=== PATIENT | male | born 1970 | race Hispanic/Latino ===

== ENCOUNTER 2020-09-25 21:39 | Inpatient (IN) | payer MEDICAID, SELFPAY ==
--- NOTE | ~2020-09-25 | XR_ITS ---
XR chest 1V portable 09/27/2020 06:13 Indication: Severe sepsis Procedure: AP portable chest Comparison: 09/26/2020 Findings: Heart size normal. Bilateral perihilar mixed interstitial and airspace disease. No pleural effusion or pneumothorax. NG tube in the stomach. Impression: 1: Mixed bilateral perihilar interstitial and airspace disease, pneumonia versus edema. Reviewed, dictated and finalized at location A. UTIVE RELATIONS SPECIALIST Impression: 1: Mixed bilateral perihilar interstitial and airspace disease, pneumonia versu s edema.
--- NOTE | ~2020-09-25 | XR_ITS ---
XR chest 1V portable 09/26/2020 05:52 Indication: Acute diabetic ketoacidosis. Sepsis. Procedure: AP portable chest Comparison: No prior studies for comparison. Findings: NG tube in the stomach. Heart size normal. There is asymmetric airspace disease of the righ t lung and left apex. No significant effusion or pneumothorax. No acute osseous abnormality. Probable hiatal hernia. No acute osseous abnormality. Impression: 1: Bilateral airspace disease, right greater than left, suspicious for pneumonia. Reviewed, dictated and finalized at location A. RAL GAS TREATING UNIT OPERATOR Impression: 1: Bilateral airspace disease, right greater than left, suspicious for pneumoni a.
--- NOTE | ~2020-09-25 | XR_ITS ---
XR abdomen NG/feed tube insert INDICATION: Evaluate NG tube position. TECHNIQUE: Limited KUB perform for evaluating NG tube . COMPARISON: No prior studies for comparison. FINDINGS: NG tube tip in the stomach. Visualized bowel gas pattern is unremarkable. IMPRESSION: 1: NG tube tip in the stomach. Reviewed, dictated and finalized at location A. CTION MOLDING MACHINE SETTER
--- NOTE | ~2020-09-25 | CT_ITS ---
EXAMINATION: CT abdomen pelvis w con EXAM DATE: 09/25/2020 22:53 INDICATION: Nausea vomiting and epigastric pain. TECHNIQUE: Spiral CT of the abdomen and pelvis was performed following intravenous injection of 100 m L Omnipaque 350. Axial, coronal and sagittal images were reviewed. The dose-length product (DLP) fo r this examination was 315.00 mGy-cm. The exposure was tailored according to patient size (auto mA e xposure control), and iterative reconstruction (ASIR) was used as additional dose reduction technique . There is no prior study for comparison. FINDINGS: Small to moderate amount of ascites. There is severe narrowing of the terminal ileum (see a xial image 83), a transition point with significantly distended ileum proximal to this, along with ed kevan within the mesentery. The mesenteric vasculature does enhance as expected. Appearance is most con sistent with small bowel obstruction. There is moderate amount of colonic stool. There is moderate si gmoid colonic diverticulosis. There is no adjacent inflammatory change to suggest diverticulitis. The liver, spleen, adrenal glands and pancreas are unremarkable. Gallbladder is unremarkable. No bi liary obstruction. Portal and splenic veins are patent. Kidneys enhance symmetrically. There is no hydronephrosis. Mild prostatomegaly. The bladder is unremarkable. There is no retroperitoneal or pelvic lymphadenopathy. There is mild scattered arteriosclerotic disease. The appendix is normal. There is moderate-sized paraesophageal hiatal hernia, gastric cardia extendi ng up through the diaphragm. No free intraperitoneal gas. The heart is normal in size. There are no pericardial or pleural effusions. Right basilar subsegmental atelectasis. There are no osteobla stic or osteolytic lesions identified. IMPRESSION: 1. Small bowel obstruction, transition point at the terminal ileum. Ascites, mesenteric edema. 2. Moderate-sized paraesophageal hiatal hernia. 3. Moderate sigmoid diverticulosis. Reviewed, dictated and finalized at location A. S SET UP PERSON IMPRESSION: 1. Small bowel obstruction, transition point at the terminal ileum. Ascites, m esenteric edema. 2. Moderate-sized paraesophageal hiatal hernia. 3. Moderate sigmoid diverticulosis.
[2020-09-25 21:42] VITALS: BP 158/101; PULSE 91; RESP 18; TEMP 35.6; O2SAT 100
--- NOTE | 2020-09-25 21:57 | ED.ABDPAIN ---
HPI - Abdominal Pain General Chief Complaint: Abdominal Pain Stated Complaint: abdominal pain Time Seen by Provider: 09/25/20 21:49 Source: patient Mode of arrival: ambulatory Limitations: no limitations History of Present Illness HPI narrative: Patient is a 48-year-old male complaining of mid abdominal pain, 7 out of 10, dull, nonradiating started yesterday. Patient denies any chest pain, shortness of breath, nausea, vomiting, diarrhea or urinary symptoms. Patient denies any fever or chills. Patient denies any GI bleeding. Related Data Home Medications Medication Instructions Recorded Confirmed Unable to Obtain Home Medications 09/25/20 09/25/20 Allergies Allergy/AdvReac Type Severity Reaction Status Date / Time No Known Allergies Allergy Verified 09/25/20 21:44 Review of Systems Review of Systems: All systems reviewed & are unremarkable except as noted in HPI and below Constitutional: Constitutional: Denies body ache(s), Denies chills, Denies excessive sweating, Denies fatigue, Denies fever(s), Denies headache(s), Denies lethargy, Denies malaise, Denies weakness and Denies weight loss Eyes: Eyes: Denies blurry vision, Denies change in vision and Denies loss of vision ENT: Denies dizziness, Denies ear discharge, Denies headache(s), Denies lip swelling, Denies epistaxis, Denies nasal congestion, Denies neck pain, Denies throat swelling and Denies tongue swelling Cardiovascular: Cardiovascular: Denies chest pain, Denies chest pain at rest, Denies chest pain with activity, Denies diaphoresis, Denies rapid heart rate, Denies edema, Denies irregular heart rhythm, Denies lightheadedness, Denies palpitations, Denies dyspnea and Denies dyspnea on exertion Respiratory: Respiratory: Denies chest congestion, Denies cough, Denies hemoptysis, Denies dyspnea and Denies dyspnea on exertion Gastrointestinal: Gastrointestinal: Denies melena, Denies hematochezia, Denies diarrhea, Denies nausea, Denies vomiting and Denies hematemesis Musculoskeletal: Musculoskeletal: Denies abnormal gait, Denies deformity, Denies joint swelling, Denies limited range of motion, Denies neck pain and Denies numbness Neurologic: Denies Abnormal speech present, Denies abnormal gait, Denies confusion, Denies dizziness, Denies headache(s), Denies focal weakness, Denies loss of vision, Denies numbness, Denies Other visual disturbances, Denies Sensory deficit (Neuro) and Denies weakness Psychiatric: Psychiatric: Denies confusion, Denies depression, Denies auditory hallucinations, Denies homicidal ideation and Denies suicidal ideation Endocrine: Endocrine: Denies cold intolerance, Denies excessive sweating, Denies fatigue, Denies heat intolerance and Denies palpitations Hematologic/Lymphatic: Hematologic/Lymphatic: Denies easy bleeding and Denies easy bruising Allergic/Immunologic: Allergic/Immunologic: Denies lip swelling, Denies throat swelling and Denies tongue swelling PMFSH Social History Social History Gender identity (if verbalized by the patient): Male Exam Const: General: cooperative, healthy appearing, comfortable, no acute distress, well developed, alert and awake; No confusion Orientation/consciousness: oriented to person, oriented to place, oriented to time, patient oriented x3 and No confusion Limitations: no limitations HENMT: Head: normal to inspection, normocephalic and atraumatic Ears: hearing grossly normal bilaterally, TM normal on the right and TM normal on the left General nose exam: Normal external nose present, Normal nares present and No nasal discharge present Face and sinus: normal facial exam Mouth: Yes Normal oral and palatal mucosa present, Yes lip normal, Yes tongue normal and Yes oropharynx normal Throat: posterior oropharynx normal, tonsils normal and uvula midline Eyes: General: appearance normal, both eyes and all related structures Pupils: Equal, round and reactive pupils present EOM: EOMs intact bilaterally Nec
[2020-09-25] MEDS: LACTATED RINGERS 1,000 ML 999 ML IV CONT (22:15)
[2020-09-25] MEDS: PROMETHAZINE HCL 25 MG/ML AMPUL (22:16)
[2020-09-25] MEDS: MORPHINE SULFATE (*CRX) 2 MG/ML INJ (22:16)
[2020-09-25 22:23] LABS: Basophils Percent Auto 0.1 % (0.2-1.2); Eosinophils Absolute Auto 0.1 K/mm3 (0-0.3); Eosinophils Percent Auto 0.3 % (0-4.4); Hematocrit 57.2 % (42.0-52.0); Hemoglobin 19.2 g/dL (14.0-18.0); Immature Granulocyte Absolute 0.18 K/mm3 (0.00-0.031); Immature Granulocyte Percent A 0.7 % (0-0.5); Lymphocytes Absolute Auto 2.76 K/mm3 (0.9-3.2); Lymphocytes Percent Auto 10.4 % (18.3-44.2); Mean Corpuscular HGB Conc 33.6 g/dl (32-36); Mean Corpuscular Hemoglobin 28.9 pg (26-34); Mean Corpuscular Volume 86.1 fl (80-100); Mean Platelet Volume 10.9 fl (7.4-10.4); Monocytes Absolute Auto 1.1 K/mm3 (0.1-0.6); Monocytes Percent Auto 4.3 % (2.6-8.5); Neutrophils Absolute Auto 22.3 K/mm3 (1.3-6.7); Neutrophils Percent Auto 84.2 % (45.5-73.1); Platelet Count Result 215 k/mm3 (150-375); Red Blood Count 6.64 M/mm3 (4.6-6.20); Red Cell Distribution Width 13.1 % (11.5-14.5); White Blood Count 26.5 K/mm3 (4.5-10.0)
[2020-09-25 22:35] LABS: Alanine Aminotransferase 24 U/L (4-50); Albumin Level 4.5 g/dL (3.5-5.1); Alkaline Phosphatase 188 U/L (38-126); Anion Gap 22 mmol/L (8-16); Aspartate Amino Transferase 31 U/L (17-59); Bilirubin,Total 0.4 mg/dL (0.2-1.3); Blood Urea Nitrogen 31 mg/dL (9-20); Calcium 9.8 mg/dL (8.4-10.2); Carbon Dioxide 18 mmol/L (22-30); Chloride 96 mmol/L (98-107); Estimated CRCL calculation 54 ml/min; Estimated Glomerular Filt Rate > 60; Glucose 379 mg/dL (75-110); Potassium 3.5 mmol/L (3.4-5.0); Sodium 136 mmol/L (137-145)
[2020-09-25 22:38] LABS: INR 0.9; Partial Thromboplastin Time 24.9 SECONDS (22.3-36.8)
[2020-09-25 22:40] LABS: Lactic Acid Reflex 8.3 mmol/L (0.7-2.1)
[2020-09-25] MEDS: HYDROmorphone HCL INJ (*CRX) 1 MG/ML SYR 0.5 MG IV PUSH (23:56)
[2020-09-26] VITALS (25 sets, daily range): BP systolic 107–176; BP diastolic 63–108; PULSE 82–141; RESP 11–22; TEMP 36.3–37.2; O2SAT 95–100; BMI 21.9
--- NOTE | 2020-09-26 00:17 | PC.NURSE ---
NG placed left nare without diff, ascultated for placement,
[2020-09-26] MEDS: LACTATED RINGERS 1,000 ML 999 ML IV CONT ×2 (00:27→01:09)
[2020-09-26 00:33] LABS: Add Urine Microscopic? YES; Appearance Urine Clear (Clear); Bilirubin Urine Negative (Negative); Blood Urine Negative (Negative); Color Urine Yellow (Yellow); Glucose Urine UA 3+ mg/dL (Negative); Ketones Urine 1+ mg/dL (Negative); Leukocyte Esterase Ur Negative LEU/UL (Negative); Mucus Urine Rare /lpf; Nitrate Urine Negative (Negative); Protein Urine Negative (Negative); RBC Urine 0-2 /hpf (0-2); Squamous Epithelial Cell Urine Occasional /hpf (Few); Urobilinogen Urine Negative mg/dL (<2.0); WBC Urine 0-3 /hpf
[2020-09-26 00:38] LABS: Alveolar/Arterial O2 Gradient 24.2 mmHg; Base Excess ABG -10.6 mEq/l (+/-2.0); Carboxyhemoglobin 0.3 % THb (0-2.0); Fractional Inspired Oxygen 21 %; HCO3 ABG 16.3 mEq/l (22.0-26.0); Methemoglobin ABG 0.4 %THb (0-1.5); Oxygen Content ABG 24.8 %vol (16.0-22.0); Oxygen Saturation ABG 93.2 % (95.0-100.0); Oxyhemoglobin 92.9 % THb (90.0-100.0); PO2 ABG 77.6 mmHg (80.0-100.0); Reduced Hemoglobin 6.4 %THb (0-5.0)
[2020-09-26 00:39] LABS: pH ABG 7.229 (7.350-7.450)
[2020-09-26 00:40] LABS: Device ROOM AIR; Modified Allen's Test Pass; Site Drawn LEFT RADIAL
[2020-09-26 00:42] LABS: Specific Grav Ur 1.036 (1.001-1.035)
[2020-09-26 01:04] LABS: Beta-Hydroxybutyrate/Acetoacetate 1.67 mmol/L (0.02-0.27)
[2020-09-26 01:08] LABS: Glucose Point of Care 410 (65-105)
[2020-09-26 01:18] LABS: Reflex Lactic Acid Yes or No Add Lactic
[2020-09-26 01:23] LABS: Glucose Point of Care 293 (65-105)
[2020-09-26 02:01] LABS: Lactic Acid 6.6 mmol/L (0.7-2.1)
[2020-09-26] MEDS: SODIUM CHLORIDE 0.9% IV 1,000 ML 150 ML IV CONT (02:45)
--- NOTE | 2020-09-26 02:51 | PC.NURSE ---
This patient, Jeancarlos Alonzo, was admitted to Intensive Care Unit-1 at Patient/family oriented to hospital policies and general routines including ID bracelet, bed and alarms, visiting hours, pain management, procedres, bathroom and other care routines, personal items, smoking policy, room service/diet, and visiting hours. Information on how to activate the Rapid Response Team has been discussed. Patient/Family are encouraged to report perceived risks to care and to ask questions if they do not understand what they are told or what they should do.
[2020-09-26 03:04] LABS: Anion Gap 15 mmol/L (8-16); Blood Urea Nitrogen 31 mg/dL (9-20); Calcium 8.6 mg/dL (8.4-10.2); Carbon Dioxide 19 mmol/L (22-30); Chloride 101 mmol/L (98-107); Estimated CRCL calculation 79 ml/min; Estimated Glomerular Filt Rate > 60; Glucose 335 mg/dL (75-110); Magnesium 1.7 mg/dL (1.6-2.3); Phosphorus 5.4 mg/dL (2.5-4.5); Potassium 4.9 mmol/L (3.4-5.0); Sodium 135 mmol/L (137-145)
[2020-09-26] MEDS: INSULIN HUMAN REGULAR (*BKC) 100 UNITS in SODIUM CHLORIDE 0.9% IV 99 ML 6.1 UNITS IV CONT (03:13)
--- NOTE | 2020-09-26 03:23 | PM.IMHP ---
H&P: HPI History of Present Illness Date/Time: 09/26/20 03:23 Chief Complaint: abdominal pain since yesterday Narrative: this is a pleasant 50-year-old male with known history of diabetes mellitus presented to the hospital with a complaint of mid abdominal pain since yesterday. The patient claims that he vomited 4 times nonbloody. He denies any recent fevers, chills, cough, shortness of breath, chest pain, diarrhea, or rectal bleeding. The patient's last meal was yesterday. He is known to take insulin for his diabetes but cannot tell me the name of it. Tonight in the emergency room the patient was evaluated and found to have a small-bowel obstruction on CT abdomen pelvis. Routine labs were obtained which also demonstrated mild diabetic ketoacidosis with hyperglycemia, and elevated anion gap metabolic acidosis and positive serum ketones, as well as severe sepsis with significant leukocytosis and an elevated lactic acid. He denies ever being in DKA in the past. The patient was treated with 3 L of Ringer's lactate IV bolus in the emergency room and we have been asked to admit him to the hospital for further care. Change Management Specialist has been consulted. Patient has no other complaints at this time. He has also been given 1 dose of Zosyn IV in the emergency room. Review of Systems Review of Systems: All systems reviewed & are unremarkable except as noted in HPI and below PMFSH Past Medical History Medical History (Updated 09/26/20 @ 03:33 by Matt Duckworth MD) Diabetes mellitus Family History Family History (Updated 09/26/20 @ 03:25 by Matt Duckworth MD) Other Diabetes mellitus Social History Social History Smoking status: Never smoker Second hand tobacco smoke exposure: No Alcohol intake: never Substance use: never Gender identity (if verbalized by the patient): Male Spiritual care concerns: No Meds Home Medications and Allergies Home Medications Medication Instructions Recorded Confirmed Type Unable to Obtain Home Medications 09/25/20 09/25/20 History Allergies Allergy/AdvReac Type Severity Reaction Status Date / Time No Known Allergies Allergy Verified 09/25/20 21:44 Vital Signs Vital Signs - 24 hr 09/25/20 21:42 09/26/20 01:09 09/26/20 02:04 Temperature 35.6 C L 36.7 C Pulse Rate 91 89 82 Respiratory Rate 18 20 18 Blood Pressure 158/101 H 174/108 H 170/104 H Pulse Oximetry 100 95 95 09/26/20 02:05 Temperature Pulse Rate Respiratory Rate 20 Blood Pressure Pulse Oximetry 98 Exam Const: General: cooperative, alert, awake, ill appearing, tired appearing and uncomfortable Nutritional Appearance: well nourished Orientation/consciousness: patient oriented x3 HENMT: Head: normal to inspection General nose exam: Other nasal findings present ( NG tube in place) Face and sinus: normal facial exam Mouth: Yes Normal oral and palatal mucosa present and Yes oropharynx normal Eyes: Pupils: Equal, round and reactive pupils present EOM: EOMs intact bilaterally Neck: Neck: supple and no JVD Thyroid: thyroid normal Lymphatic: lymphadenopathy not noted Resp: Effort & Inspection: normal respiratory effort Auscultation: clear to auscultation bilaterally Cardio: Rate: regular rate Rhythm: regular rhythm Heart sounds: no murmurs GI: Inspection: normal to inspection GI Palp: Yes abdominal tenderness ( mid and low abdomen with palpation++ ) Auscultation: normal bowel sounds Skin: General skin exam: normal color and no rashes or lesions noted Neuro: General: patient oriented x3 Cranial nerves: Yes CN's II-XII intact bilaterally and Yes Equal, round and reactive pupils present Speech: normal speech Motor exam (neuro): 5/5 motor strength present throughout Sensory Exam: normal sensation Extrem: General: normal to inspection and no edema Psych: Mental Status: mental status grossly normal Affect: normal affect H&P: Results Labs Labs: Short CBC
[2020-09-26 03:29] LABS: Hemoglobin A1C 8.4 % (<5.7)
[2020-09-26 03:37] LABS: Glucose Point of Care 330 (65-105)
[2020-09-26 03:37] LABS: Glucose Point of Care 369 (65-105)
[2020-09-26 04:22] LABS: Glucose Point of Care 352 (65-105)
[2020-09-26 04:28] LABS: Alveolar/Arterial O2 Gradient 12.1 mmHg; Base Excess ABG -10.6 mEq/l (+/-2.0); Fractional Inspired Oxygen 21 %; HCO3 ABG 16.1 mEq/l (22.0-26.0); Oxygen Content ABG 27.1 %vol (16.0-22.0); Oxygen Saturation ABG 95.6 % (95.0-100.0); Oxyhemoglobin 94.6 % THb (90.0-100.0); PCO2 ABG 38.9 mmHg (35.0-45.0); PO2 FiO2 Ratio Arterial Blood 4.33 %; Total Hemoglobin 20.4 g/dL (12.0-18.0)
[2020-09-26 04:30] LABS: Device ROOM AIR; Modified Allen's Test Unable to perform; Site Drawn RIGHT RADIAL
[2020-09-26 04:31] LABS: pH ABG 7.235 (7.350-7.450)
[2020-09-26 05:15] LABS: Glucose Point of Care 327 (65-105)
[2020-09-26] MEDS: SODIUM CHLORIDE 0.9% IV 500 ML 999 ML IV CONT (05:22)
[2020-09-26 06:03] LABS: Basophils Absolute Auto 0.1 K/mm3 (0.0-0.1); Basophils Percent Auto 0.3 % (0.2-1.2); Hematocrit 54.2 % (42.0-52.0); Hemoglobin 18.2 g/dL (14.0-18.0); Immature Granulocyte Absolute 0.27 K/mm3 (0.00-0.031); Immature Granulocyte Percent A 1.4 % (0-0.5); Lymphocytes Absolute Auto 0.95 K/mm3 (0.9-3.2); Lymphocytes Percent Auto 4.9 % (18.3-44.2); Mean Corpuscular HGB Conc 33.6 g/dl (32-36); Mean Corpuscular Hemoglobin 28.6 pg (26-34); Mean Corpuscular Volume 85.2 fl (80-100); Mean Platelet Volume 10.7 fl (7.4-10.4); Monocytes Absolute Auto 0.8 K/mm3 (0.1-0.6); Monocytes Percent Auto 4.2 % (2.6-8.5); Neutrophils Absolute Auto 17.5 K/mm3 (1.3-6.7); Neutrophils Percent Auto 89.2 % (45.5-73.1); Platelet Count Result 209 k/mm3 (150-375); Red Blood Count 6.36 M/mm3 (4.6-6.20); Red Cell Distribution Width 13.1 % (11.5-14.5); White Blood Count 19.6 K/mm3 (4.5-10.0)
[2020-09-26 06:26] LABS: Anion Gap 13 mmol/L (8-16); Blood Urea Nitrogen 32 mg/dL (9-20); Calcium 8.2 mg/dL (8.4-10.2); Carbon Dioxide 22 mmol/L (22-30); Chloride 102 mmol/L (98-107); Estimated CRCL calculation 60 ml/min; Estimated Glomerular Filt Rate > 60; Glucose 284 mg/dL (75-110); Potassium 4.4 mmol/L (3.4-5.0); Sodium 137 mmol/L (137-145)
[2020-09-26 07:25] LABS: Glucose Point of Care > 500 (65-105)
[2020-09-26 07:25] LABS: Glucose Point of Care 245 (65-105)
[2020-09-26] MEDS: ONDANSETRON INJ 4 MG/2 ML VIAL (08:02)
[2020-09-26 08:14] LABS: Glucose Point of Care 190 (65-105)
[2020-09-26] MEDS: SODIUM CHLORIDE 0.9% IV 1,000 ML 999 ML IV CONT (08:18)
[2020-09-26] MEDS: KCL 20 MEQ/D5/0.45% SOD CHL 1,000 ML 150 ML IV CONT ×2 (08:21→10:15)
[2020-09-26 09:19] LABS: Glucose Point of Care 184 (65-105)
[2020-09-26 09:36] LABS: Anion Gap 7 mmol/L (8-16); Blood Urea Nitrogen 35 mg/dL (9-20); Calcium 7.5 mg/dL (8.4-10.2); Carbon Dioxide 26 mmol/L (22-30); Chloride 105 mmol/L (98-107); Estimated CRCL calculation 65 ml/min; Estimated Glomerular Filt Rate > 60; Glucose 140 mg/dL (75-110); Potassium 4.6 mmol/L (3.4-5.0); Sodium 138 mmol/L (137-145)
--- NOTE | 2020-09-26 09:42 | WPDCNINT ---
Assessment and Plan Assessment and plan (1) DKA (diabetic ketoacidoses): Qualifiers: Diabetes mellitus complication detail: without coma Diabetes mellitus type: type 2 Qualified Code(s): E11.10 - Type 2 diabetes mellitus with ketoacidosis without coma Code(s): E11.10 - Type 2 diabetes mellitus with ketoacidosis without coma Status: Acute Assessment and Plan: Patient presented with abdominal pain, nausea vomiting. Was found to be in DKA in the ER, patient was given 3 L IV fluid bolus, started on insulin infusion and transferred to the ICU for further management. -patient remains on insulin infusion. Blood sugars remain elevated, additional IV fluid bolus given -inciting event be small-bowel obstruction or DKA leading to small bowel obstruction -hemoglobin A1c is 8.4 this admission -anion gap has closed, CO2 levels are 26. -will transition to long-acting insulin and sliding scale insulin. Patient does state that he takes 30 units of insulin at home in the morning (2) Small intestine obstruction: Code(s): K56.609 - Unspecified intestinal obstruction, unspecified as to partial versus complete obstruction Status: Acute Assessment and Plan: Small-bowel obstruction with transition point at the terminal ileum. Ascites, mesenteric edema as seen on CT scan of the abdomen and pelvis done in the ER on 09/25/2020 -lactic acid trending down -appreciate surgical evaluation, -discussed with surgery will trend lactic acid levels. If they start increasing or if patient is clinically declining, surgeon to perform a laparoscopic evaluation (3) Severe sepsis: Code(s): A41.9 - Sepsis, unspecified organism; R65.20 - Severe sepsis without septic shock Status: Acute Assessment and Plan: Says patient with leukocytosis, tachycardia, elevated lactic acid. -adequately fluid-resuscitated -blood pressures are stable as of now. -additional IV fluid was given. -due to monitor urine output, renal function electrolytes (4) Acute dehydration: Code(s): E86.0 - Dehydration Status: Acute Assessment and Plan: Adequately fluid-resuscitated, will continue to monitor urine output (5) DVT prophylaxis: Code(s): Z29.9 - Encounter for prophylactic measures, unspecified Status: Acute Assessment and Plan: SCDs Additional Plan Code status: Full code Critical care time spent:48 minutes Due to a high probability of clinically significant, life threatening deterioration, the patient required my highest level of preparedness to intervene emergently and I personally spent this critical care time directly and personally managing the patient. This critical care time included obtaining a history; examining the patient; pulse oximetry; ordering and review of studies; arranging urgent treatment with development of a management plan; evaluation of patient's response to treatment; frequent reassessment; and discussions with other providers. It was exclusive of separately billable procedures and treating other patients and teaching time. Please see Assessment and Plan section and the rest of the note for further information on patient assessment and treatment Hand Painter Consult Note Consult date: 09/26/20 Time Seen: 07:04 Reason for consult: DKA, small-bowel obstruction, lactic acidosis HPI: Jeancarlos Alonzo is a 50 year old male with past medical history of insulin-dependent diabetes presented the hospital 09/25/2019 with complains of abdominal pain x1 day. Abdominal pain associated nausea and vomiting x4. Patient states he takes 30 units of insulin the morning checks his blood sugar at home every day and they range from 180-290. Patient states that the abdominal pain as diffuse, persistent. In the ED patient was found to be in DKA, was given 3 L of IV fluids, started on insulin infusion. CT scan of the abdomen pelvis showed small-bowel obstruction. Surgery was consulted in the ER.
[2020-09-26 09:59] LABS: Lactic Acid Reflex 6.6 mmol/L (0.7-2.1)
[2020-09-26] MEDS: SODIUM CHLORIDE 0.9% IV 1,000 ML 75 ML IV CONT (10:20)
[2020-09-26] MEDS: INSULIN HUMAN REGULAR (*BKC) 100 UNITS in SODIUM CHLORIDE 0.9% IV 99 ML 9.92 UNITS IV CONT (10:21)
--- NOTE | 2020-09-26 11:07 | PC.NURSE ---
Patient's sons: Jeancarlos Gresham [phone] Barry [phone]
--- NOTE | 2020-09-26 11:35 | PM.CNGS ---
Assessment and Plan Assessment and plan (1) Small intestine obstruction: Code(s): K56.609 - Unspecified intestinal obstruction, unspecified as to partial versus complete obstruction Status: Acute Assessment and Plan: CT scan reviewed and discussed with the patient. The CT suggests a small bowel obstruction with a transition point at a narrowing of the terminal ileum, with mesenteric edema, and small to moderate amount of ascites. Mesenteric vasculature shows expected enhancement. No evidence of a closed loop obstruction, internal hernia, twisting of the bowel, or other findings on the CT that would suggest possibility of bowel ischemia. He has no history of abdominal surgeries, that would suggest intra-abdominal adhesions as a cause for the obstruction, although de sho adhesions could be a potential etiology. Clinically, the patient is passing flatus, has had two bowel movements today, and is no longer complaining of abdominal pain. Along with this, his lactic acid is starting to trend down this morning. The lactic acidosis could be related to his diabetes and DKA. We will continue to closely monitor the patient with serial abdominal exams and serial lactate levels. If his lactic acid increases again or he declines clinically, then we would consider surgical exploration. Continue NG tube decompression, bowel rest, IV fluids, antiemetics, and analgesics. (2) DKA (diabetic ketoacidoses): Qualifiers: Diabetes mellitus complication detail: without coma Diabetes mellitus type: type 2 Qualified Code(s): E11.10 - Type 2 diabetes mellitus with ketoacidosis without coma Code(s): E11.10 - Type 2 diabetes mellitus with ketoacidosis without coma Status: Acute Assessment and Plan: Patient presented with DKA and was started on an insulin drip and IV fluids. He was transferred to the ICU. Since admission, he has been taken off the insulin drip and switched to long-acting insulin with short-acting sliding scale. (3) Severe sepsis: Code(s): A41.9 - Sepsis, unspecified organism; R65.20 - Severe sepsis without septic shock Status: Acute Assessment and Plan: Criteria met on admission with leukocytosis, tachycardia, and lactic acidosis. He received 3L IV fluids in the ER and another IV fluid bolus today. Lactic acid down now to 6.6 this morning. Continue to monitor serial lactate levels. Blood cultures pending. Blood pressure remains stable. Tachycardia has improved - currently HR is 110's on my exam. Currently on broad-spectrum IV abx. (4) Acute dehydration: Code(s): E86.0 - Dehydration Status: Acute Assessment and Plan: Has received adequate IV fluid hydration. (5) Hypertension: Qualifiers: Hypertension type: unspecified Qualified Code(s): I10 - Essential (primary) hypertension Code(s): I10 - Essential (primary) hypertension Status: Acute Assessment and Plan: BP 158/101 in the ER and remained elevated initially. Patient denies history of HTN. Family is supposed to be calling with full medication list. BP improved and now stable with last BP 128/88. Additional Plan Discussed the patient's case and plan of care with Dr. Kramer. Thank you for allowing us to see the patient in consultation and we will continue to follow along with you. History of Present Illness Consult details Consult date: 09/26/20 Reason for consult: other (Small bowel obstruction) Requesting physician: Romero Sepulveda MD Narrative: This is a 50-year-old insulin-dependent diabetic male who presented to the emergency department with complaints of abdominal pain and vomiting. The patient reports a sudden onset of lower abdominal pain around 6pm last night prior to eating dinner. He then developed nausea and multiple episodes of vomiting. Due to the unrelenting pain, he presented to the ER for further evaluation. CT scan of the abdomen and pelvis showed a small bowel obstructio
[2020-09-26 12:04] LABS: Glucose Point of Care 143 (65-105)
[2020-09-26 14:11] LABS: Hematocrit 51.1 % (42.0-52.0); Hemoglobin 17.7 g/dL (14.0-18.0); Mean Corpuscular HGB Conc 34.6 g/dl (32-36); Mean Corpuscular Hemoglobin 29.3 pg (26-34); Mean Corpuscular Volume 84.6 fl (80-100); Mean Platelet Volume 10.3 fl (7.4-10.4); Platelet Count Result 179 k/mm3 (150-375); Red Blood Count 6.04 M/mm3 (4.6-6.20); Red Cell Distribution Width 13.5 % (11.5-14.5); White Blood Count 19.1 K/mm3 (4.5-10.0)
[2020-09-26] MEDS: MORPHINE SULFATE (*CRX) 4 MG/ML INJ IV PUSH (14:20)
[2020-09-26 14:23] LABS: Anion Gap 9 mmol/L (8-16); Blood Urea Nitrogen 36 mg/dL (9-20); Calcium 7.5 mg/dL (8.4-10.2); Carbon Dioxide 21 mmol/L (22-30); Chloride 106 mmol/L (98-107); Estimated CRCL calculation 65 ml/min; Estimated Glomerular Filt Rate > 60; Glucose 198 mg/dL (75-110); Potassium 4.5 mmol/L (3.4-5.0); Sodium 136 mmol/L (137-145)
[2020-09-26 14:24] LABS: Lactic Acid Reflex 3.2 mmol/L (0.7-2.1)
--- NOTE | 2020-09-26 14:35 | WPDANESEPPF ---
Anes - Initial Pre Proc Eval Procedure: Operation Date: 09/26/20 14:00 Proposed Procedures p Exploratory Laparotomy, Possible Bowel Resection - Joe Kramer DO Date/Time: 09/26/20 14:35 Surgeon: Matt Duckworth MD Pre Op Diagnosis: SBO, DKA Patient Data Age: 50 Gender: M Height: 1.65 m Weight: 60.5 kg Last Vital Signs Temp 36.8 C 09/26/20 13:01 Pulse 116 H 09/26/20 13:01 Resp 18 09/26/20 13:01 BP 133/81 09/26/20 13:01 Pulse Ox 96 09/26/20 13:01 Allergies Allergy/AdvReac Type Severity Reaction Status Date / Time No Known Allergies Allergy Verified 09/25/20 21:44 Home Medications Medication Instructions Recorded Confirmed Type Unable to Obtain Home Medications 09/25/20 09/25/20 History Laboratory Tests 09/25/20 09/25/20 09/25/20 22:16 22:16 22:16 WBC 26.5 K/mm3 H K/mm3 (4.5-10.0) RBC 6.64 M/mm3 H M/mm3 (4.6-6.20) Hgb 19.2 g/dL H g/dL (14.0-18.0) Hct 57.2 % H % (42.0-52.0) MCV 86.1 fl fl (80-100) MCH 28.9 pg pg (26-34) MCHC 33.6 g/dl g/dl (32-36) RDW 13.1 % % (11.5-14.5) Plt Count 215 k/mm3 k/mm3 (150-375) MPV 10.9 fl H fl (7.4-10.4) Immature Gran % (Auto) 0.7 % H % (0-0.5) Neut % (Auto) 84.2 % H % (45.5-73.1) Lymph % (Auto) 10.4 % L % (18.3-44.2) [place] % (Auto) 4.3 % % (2.6-8.5) Eos % (Auto) 0.3 % % (0-4.4) Baso % (Auto) 0.1 % L % (0.2-1.2) Lymph # (Auto) 2.76 K/mm3 K/mm3 (0.9-3.2) [place] # (Auto) 1.1 K/mm3 H K/mm3 (0.1-0.6) Eos # (Auto) 0.1 K/mm3 K/mm3 (0-0.3) Baso # (Auto) 0.0 K/mm3 K/mm3 (0.0-0.1) Abs Immat Gran (auto) 0.18 K/mm3 H K/mm3 (0.00-0.031) Absolute Neuts (auto) 22.3 K/mm3 H K/mm3 (1.3-6.7) Absolute Nucleated RBC 0.0 K/mm3 K/mm3 (0.0-0.012) Nucleated RBC % 0.0 % % (0.0-0.2) PT 13.0 Seconds Seconds (11.1-14.7) INR 0.9 APTT 24.9 SECONDS SECONDS (22.3-36.8) Puncture Site ABG pH ABG pCO2 ABG pO2 ABG PO2/FiO2 Ratio ABG HCO3 ABG O2 Saturation ABG O2 Content ABG Base Excess A-a Gradient Oxyhemoglobin Carboxyhemoglobin Methemoglobin Reduced Hemoglobin Total Hemoglobin O2 Delivery Device O2 Liters/Min FiO2 Sodium 136 mmol/L L mmol/L (137-145) Potassium 3.5 mmol/L mmol/L (3.4-5.0) Chloride 96 mmol/L L mmol/L (98-107) Carbon Dioxide 18 mmol/L L mmol/L (22-30) Anion Gap 22 mmol/L H mmol/L (8-16) BUN 31 mg/dL H mg/dL (9-20) Creatinine 0.90 mg/dL mg/dL (0.7-1.3) Estim Creat Clear Calc 54 ml/min ml/min Estimated GFR > 60 (59 - ) Glucose 379 mg/dL H mg/dL (75-110) POC Capillary Glucose Hemoglobin A1c Lactic Acid Calcium 9.8 mg/dL mg/dL (8.4-10.2) Phosphorus Magnesium Total Bilirubin 0.4 mg/dL mg/dL (0.2-1.3) AST 31 U/L U/L (17-59) ALT 24 U/L U/L (4-50) Alkaline Phosphatase 188 U/L H U/L (38-126) Total Protein 8.0 g/dL g/dL (6.3-8.2) Albumin 4.5 g/dL g/dL (3.5-5.1) Beta-Hydroxybutyrate/Acetoacetate Urine Color Urine Appearance Urine pH Ur Specific [place] Urine Protein Urine Glucose (UA) Urine Ketones Ur Blood (Man) Urine Nitrate Urine Bilirubin Urine Urobilinogen Leukocyte Esterase Rfl Urine RBC Urine WBC
--- NOTE | 2020-09-26 14:36 | PC.NURSE ---
Patient taken to preop by RNUli, and patient career coordinator. Patient transported in stable condition and on monitor. chart and consent sent with patient.
--- NOTE | 2020-09-26 14:39 | SUR.PREOP ---
1430; PT ARRIVE INTO PREOP PER BED FROM ICU. NG IN LT NARE. PLACED TO LIS UPON ARRIVAL . HOB ELEVATED 30 DEGREES. PT ON PORTABLE MONITOR. PT A&OX3. 1437; ACCUCHECK = 225. DR ZIMMER NOTIFIED. NO ORDERS AT THIS TIME.
[2020-09-26 14:40] LABS: Glucose Point of Care 225 (65-105)
[2020-09-26] MEDS: LACTATED RINGERS 1,000 ML 30 ML IV CONT (14:41)
--- NOTE | 2020-09-26 15:34 | SUR.PREOP ---
DEANGELO TRUCKER, STATES DR ISAAC SAID PT TO OR WITHOUT UPDATE H&P DUE TO EMERGENT.
--- NOTE | 2020-09-26 15:37 | PM.CNGS ---
Assessment and Plan Assessment and plan (1) Small intestine obstruction: Code(s): K56.609 - Unspecified intestinal obstruction, unspecified as to partial versus complete obstruction Status: Acute Assessment and Plan: The patient was admitted and findings on the CT suggested bowel obstruction but patient has not had any bowel surgery in the past. Adhesions seem unlikely, but given his overall presentation bowel ischemia is of the highest concern. The patient also has begun having hematochezia which would further concern for some sort of ischemic bowel or ischemic colitis. He is tachycardic but still is managing a normal blood pressure. He appears to be at risk for going into septic shock at any time. I have recommended emergent exploratory laparotomy with possible bowel resection. There is a possibility that the findings on the CT have at least partially resolved as patient is moving his bowels now, but there is still lactic acidosis and concern for ongoing ischemia. I discussed possible bowel resection and even possible ostomy with the patient and his son. He has been started on broad-spectrum IV antibiotics and is being closely monitored in the ICU in critical condition. (2) Severe sepsis: Code(s): A41.9 - Sepsis, unspecified organism; R65.20 - Severe sepsis without septic shock Status: Acute Assessment and Plan: Increases perioperative risks along with multiple comorbidities (3) DKA (diabetic ketoacidoses): Qualifiers: Diabetes mellitus type: type 2 Diabetes mellitus complication detail: without coma Qualified Code(s): E11.10 - Type 2 diabetes mellitus with ketoacidosis without coma Code(s): E11.10 - Type 2 diabetes mellitus with ketoacidosis without coma Status: Acute (4) Hematochezia: Code(s): K92.1 - Melena Status: Acute History of Present Illness Consult details Consult date: 09/26/20 Narrative: This is a 50-year-old man who presented to the emergency department overnight with acute onset of abdominal pain that started around 6:00 p.m. yesterday. He states that prior to this he was feeling fine. His bowels have been moving normally. He has never experienced pain like this in the past. He does have a history of insulin dependent diabetes. In the emergency department he was noted to have abdominal tenderness and significantly elevated blood glucose levels. He also had evidence of lactic acidosis. A CT of his abdomen and pelvis showed evidence of small-bowel obstruction without any evidence of pneumatosis or vascular abnormalities. There was moderate amount of ascites and some mesenteric edema. He was admitted to the ICU for diabetic ketoacidosis and for further resuscitation. His lactic acidosis did not improved very significantly with IV hydration. He then also began experiencing some coffee-ground emesis and bloody stools. He remains tachycardic in the ICU but is not on pressors. Review of Systems Review of Systems: All systems reviewed & are unremarkable except as noted in HPI and below Gastrointestinal: Gastrointestinal: Reports as per HPI PMFSH Past Medical History Medical History Diabetes mellitus DKA (diabetic ketoacidoses) Hypertension Severe sepsis Surgical History Surgical History No significant past surgical history Family History Family History Other Diabetes mellitus Social History Social History Smoking status: Never smoker Second hand tobacco smoke exposure: No Alcohol intake: never Substance use: never Living arrangements: with family Additional living arrangements comments: Lives at home with his . Gender identity (if verbalized by the patient): Male Spiritual care concerns:
--- NOTE | 2020-09-26 15:46 | WPDHPUPDATE1 ---
History and Physical Update Update Date/Time: 09/26/20 15:46 History and Physical has been reviewed, including an updated exam of the patient. There are NO changes in the patient's condition. Risks, benefits, and alternatives have been discussed and questions answered. Patient agrees to proceed with procedure.
--- NOTE | 2020-09-26 17:03 | PM.PROC ---
Procedure Note - Detailed Date of procedure: 09/26/20 Pre-op diagnosis: SBO, DKA, Hematochezia, severe sepsis Post-op diagnosis: same Procedure performed: 1. Exploratory laparotomy 2. Ileal resection with [id number] ileal anastomosis 3. Incidental appendectomy Description of procedure: Procedure as well as risks, benefits, and alternatives were explained to the patient. Written consent was obtained and placed in chart prior to procedure. Patient was brought back to surgical suite. He was placed supine on operating table. Time-out was done to confirm patient and procedure. He was then intubated by the Anesthesia Department. His abdomen was prepped and draped in sterile fashion using chlorhexidine prep. A 20 cm vertical midline incision was made using a 10 blade scalpel. Electrocautery was used for hemostasis and for dissection down to the linea Alba. The linea alba was then incised using electrocautery. The fascia was lifted anteriorly using 2 Jose Luis clamps and the peritoneum was entered using electrocautery. An Tommy wound protector was inserted and the abdominal cavity was carefully inspected. There was a large amount of bloody ascites that was suction initially. I then identified what appeared to be ischemic looking small bowel. There was an adhesive band of omentum down to the lower abdomen which appeared to be causing an internal hernia and the bowel obstruction. The adhesive band came free with blunt dissection. I then inspected the small bowel. There was a 3 ft segment of ischemic ileum but the distal ileum and entire colon appeared healthy and viable. There was about 5-6 feet of proximal small bowel that appeared healthy and viable. A window was created in the mesentery just proximal and distal to the ischemic segment. A YEYO 75 mm blue load stapler was then advanced across the proximal and distal healthy appearing bowel. The stapler was fired to transect the bowel at each of these points. LigaSure electrocautery was then used to take down the mesentery of the involved segment. The specimen was removed completely and sent to the lab for pathology. I then carefully inspected the remaining small bowel and this appeared healthy and viable. Enterotomies were made on the anti mesenteric border of the 2 limbs of the bowel using Metzenbaum scissors. A YEYO 75 mm blue load stapler was then advanced through each enterotomy in the bowel was clamped together in a [id number] fashion along the anti mesenteric border. The stapler was then fired to create our anastomosis. The enterotomy was then closed using a TLC 60 mm stapler. The anastomosis was inspected and appeared healthy and viable and widely patent. The staple line at the apex was reinforced using a 3 0 silk seromuscular imbricating suture. The mesenteric rent was closed using 3 0 chromic running suture. The small bowel was then released back down into the abdominal cavity. I then carefully inspected the small bowel from the ligament of Treitz to the ileocecal valve. No other abnormalities were noted in the bowel appeared healthy and viable. I chose to remove the appendix as it was right near where the small-bowel resection was performed. A curved hemostat was placed across the base of the appendix and the appendix was cut away using a 15 blade scalpel. The mesoappendix was taken down using LigaSure electrocautery. It was then sent to the lab for pathology. The base of the appendix was then closed using an 0 Vicryl tie followed by an 0 silk tie. The mucosa was then cauterized at the distal edge. No other abnormalities were noted. I then irrigated the abdomen with 2 L of sterile saline. Hemostasis appeared adequate no other abnormalities were noted. The NG tube was then palpated in the body of the stomach and confirmed in its location. The Tommy wound protector was then removed. The fascia of the midline incision was then reapproximated using 0 PDS running absorbable suture starting fro
[2020-09-26 17:09] LABS: Glucose Point of Care 204 (65-105)
[2020-09-26 17:09] LABS: Reflex Lactic Acid Yes or No Add Lactic
[2020-09-26] MEDS: fentaNYL CITRATE INJ (*CRX) 100 MCG/2 ML VIAL 25 MCG IV PUSH ×4 (17:15→17:30)
--- NOTE | 2020-09-26 17:50 | SUR.PHASEI ---
1730- accucheck 204, ng to low wall intermittant suction. sheppard patent
[2020-09-26] MEDS: INSULIN ASPART (*BKC) 100 UNITS/ML SUB-Q (18:05)
[2020-09-26 18:08] LABS: Glucose Point of Care 222 (65-105)
[2020-09-26] MEDS: LACTATED RINGERS 1,000 ML 150 ML IV CONT (18:30)
[2020-09-26 18:40] LABS: Anion Gap 5 mmol/L (8-16); Blood Urea Nitrogen 38 mg/dL (9-20); Calcium 7.2 mg/dL (8.4-10.2); Carbon Dioxide 24 mmol/L (22-30); Chloride 106 mmol/L (98-107); Estimated CRCL calculation 65 ml/min; Estimated Glomerular Filt Rate > 60; Glucose 218 mg/dL (75-110); Lactic Acid 2.1 mmol/L (0.7-2.1); Potassium 5.6 mmol/L (3.4-5.0); Sodium 135 mmol/L (137-145)
[2020-09-26] MEDS: INSULIN GLARGINE (*BKC) 100 UNITS/ML 30 UNITS SUB-Q (21:05)
[2020-09-26 21:10] LABS: Glucose Point of Care 213 (65-105)
[2020-09-27] VITALS (10 sets, daily range): BP systolic 119–158; BP diastolic 61–78; PULSE 73–100; RESP 12–18; TEMP 36.7–37.4; O2SAT 93–100
[2020-09-27] MEDS: HYDROmorphone HCL INJ (*CRX) 1 MG/ML SYR 0.5 MG IV PUSH ×2 (00:01→04:29)
[2020-09-27 00:33] LABS: Glucose Point of Care 185 (65-105)
[2020-09-27 02:14] LABS: Lactic Acid Reflex 1.2 mmol/L (0.7-2.1)
[2020-09-27 04:53] LABS: Hematocrit 39.6 % (42.0-52.0); Hemoglobin 13.6 g/dL (14.0-18.0); Mean Corpuscular HGB Conc 34.3 g/dl (32-36); Mean Corpuscular Hemoglobin 29.1 pg (26-34); Mean Corpuscular Volume 84.6 fl (80-100); Mean Platelet Volume 10.5 fl (7.4-10.4); Platelet Count Result 154 k/mm3 (150-375); Red Blood Count 4.68 M/mm3 (4.6-6.20); Red Cell Distribution Width 13.5 % (11.5-14.5); White Blood Count 14.2 K/mm3 (4.5-10.0)
[2020-09-27 05:10] LABS: Alanine Aminotransferase 14 U/L (4-50); Albumin Level 2.2 g/dL (3.5-5.1); Alkaline Phosphatase 52 U/L (38-126); Anion Gap 2 mmol/L (8-16); Aspartate Amino Transferase 28 U/L (17-59); Bilirubin,Total 0.3 mg/dL (0.2-1.3); Blood Urea Nitrogen 42 mg/dL (9-20); Calcium 7.5 mg/dL (8.4-10.2); Carbon Dioxide 28 mmol/L (22-30); Chloride 107 mmol/L (98-107); Estimated CRCL calculation 65 ml/min; Estimated Glomerular Filt Rate > 60; Glucose 152 mg/dL (75-110); Lactic Acid Reflex 1.1 mmol/L (0.7-2.1); Magnesium 1.7 mg/dL (1.6-2.3); Phosphorus 4.6 mg/dL (2.5-4.5); Potassium 4.5 mmol/L (3.4-5.0); Sodium 137 mmol/L (137-145)
[2020-09-27 05:14] LABS: Alveolar/Arterial O2 Gradient 46.1 mmHg; Base Excess ABG -4.7 mEq/l (+/-2.0); Carboxyhemoglobin 0.2 % THb (0-2.0); Fractional Inspired Oxygen 21 %; HCO3 ABG 19.5 mEq/l (22.0-26.0); Methemoglobin ABG 0.2 %THb (0-1.5); Oxygen Content ABG 17.6 %vol (16.0-22.0); Oxygen Saturation ABG 92.1 % (95.0-100.0); Oxyhemoglobin 91.4 % THb (90.0-100.0); PCO2 ABG 33.7 mmHg (35.0-45.0); PO2 ABG 63.3 mmHg (80.0-100.0); PO2 FiO2 Ratio Arterial Blood 3.01 %; Reduced Hemoglobin 8.2 %THb (0-5.0); Total Hemoglobin 13.7 g/dL (12.0-18.0); pH ABG 7.381 (7.350-7.450)
[2020-09-27 05:16] LABS: Device ROOM AIR; Modified Allen's Test Pass; Site Drawn RIGHT RADIAL
[2020-09-27] MEDS: HYDROmorphone HCL INJ (*CRX) 1 MG/ML SYR IV PUSH ×4 (08:06→23:11)
[2020-09-27] MEDS: LACTATED RINGERS 1,000 ML 75 ML IV CONT ×2 (08:12→14:26)
[2020-09-27] MEDS: ENOXAPARIN 40 MG/0.4 ML SYRINGE SUB-Q (08:24)
--- NOTE | 2020-09-27 08:56 | WPDANESPN ---
Anes - Prog Note Post-Op Date/Time: 09/27/20 08:56 Cardiovascular status: normal Respiratory status: normal Airway patency: baseline Mental status: baseline Post-Op hydration status: normal Vital Signs: Last Vital Signs Temp 37.1 C 09/27/20 04:00 Pulse 82 09/27/20 06:00 Resp 13 09/27/20 06:00 BP 150/75 H 09/27/20 06:00 Pulse Ox 94 09/27/20 06:00 Pain Score (VAS): 310 I/O: Intake & Output 09/26/20 09/27/20 09/27/20 23:59 07:59 15:59 Intake Total 400 1550 Output Total 900 Balance 400 650 Laboratory Tests 09/27/20 04:42 09/27/20 04:42 09/26/20 09/26/20 09/26/20 09:14 09:15 09:15 WBC RBC Hgb Hct MCV MCH MCHC RDW Plt Count MPV Puncture Site ABG pH ABG pCO2 ABG pO2 ABG PO2/FiO2 Ratio ABG HCO3 ABG O2 Saturation ABG O2 Content ABG Base Excess A-a Gradient Oxyhemoglobin Carboxyhemoglobin Methemoglobin Reduced Hemoglobin Total Hemoglobin O2 Delivery Device O2 Liters/Min FiO2 Sodium 138 Potassium 4.6 Chloride 105 Carbon Dioxide 26 Anion Gap 7 L BUN 35 H Creatinine 1.00 Estim Creat Clear Calc 65 Estimated GFR > 60 Glucose 140 H POC Capillary Glucose 184 H Lactic Acid 6.6 H* Calcium 7.5 L Phosphorus Magnesium Total Bilirubin AST ALT Alkaline Phosphatase Total Protein Albumin 09/26/20 09/26/20 09/26/20 11:55 14:04 14:04 WBC 19.1 H RBC 6.04 Hgb 17.7 Hct 51.1 MCV 84.6 MCH 29.3 MCHC 34.6 RDW 13.5 Plt Count 179 MPV 10.3 Puncture Site ABG pH ABG pCO2 ABG pO2 ABG PO2/FiO2 Ratio ABG HCO3 ABG O2 Saturation ABG O2 Content ABG Base Excess A-a Gradient Oxyhemoglobin Carboxyhemoglobin Methemoglobin Reduced Hemoglobin Total Hemoglobin O2 Delivery Device O2 Liters/Min FiO2 Sodium Potassium Chloride Carbon Dioxide Anion Gap BUN Creatinine Estim Creat Clear Calc Estimated GFR Glucose POC Capillary Glucose 143 H Lactic Acid 3.2 H Calcium Phosphorus Magnesium Total Bilirubin AST ALT Alkaline Phosphatase Total Protein Albumin 09/26/20 09/26/20 09/26/20 14:04 14:37 17:06 WBC RBC Hgb Hct MCV MCH MCHC RDW Plt Count MPV Puncture Site ABG pH ABG pCO2 ABG pO2 ABG PO2/FiO2 Ratio ABG HCO3 ABG O2 Saturation ABG O2 Content ABG Base Excess A-a Gradient Oxyhemoglobin Carboxyhemoglobin Methemoglobin Reduced Hemoglobin Total Hemoglobin O2 Delivery Device O2 Liters/Min FiO2 Sodium 136 L Potassium 4.5 Chloride 106 Carbon Dioxide 21 L Anion Gap 9 BUN 36 H Creatinine 1.00 Estim Creat Clear Calc 65 Estimated GFR > 60 Glucose 198 H POC Capillary Glucose 225 H 204 H Lactic Acid Calcium 7.5 L Phosphorus Magnesium Total Bilirubin AST ALT Alkaline Phosphatase Total Protein Albumin 09/26/20 09/26/20 09/26/20 18:05 18:17 18:17 WBC RBC Hgb Hct MCV MCH MCHC RDW Plt Count MPV Puncture Site ABG pH ABG pCO2 ABG pO2 ABG PO2/FiO2 Ratio ABG HCO3 ABG O2 Saturation ABG O2 Content ABG Base Excess A-a Gradient Oxyhemoglobin Carboxyhemoglobin Methemoglobin Reduced Hemoglobin Total Hemoglobin O2 Delivery Device O2 Liters/Min FiO2 Sodium 135 L Potassium 5.6 H Chloride 106 Carbon Dioxide 24 Anion Gap 5 L BUN 38 H Creatinine 1.00 Estim Creat Clear Calc 65 Estimated GFR > 60 Glucose 218 H POC Capillary Glucose 222 H Lactic Acid 2.1 Calcium 7.2 L Phosphorus Magnesium Total Bilirubin AST ALT Alkaline Phosphatase Total Protein Albumin
[2020-09-27 09:20] LABS: Lactic Acid Reflex 1.2 mmol/L (0.7-2.1)
--- NOTE | 2020-09-27 09:35 | WPDINTPN ---
Progress Note: A&P Assessment and Plan (1) Ischemic bowel disease: Code(s): K55.9 - Vascular disorder of intestine, unspecified Status: Acute Assessment and Plan: With abdominal pain, DKA lactic acidosis, severe sepsis drove -CT scan of the abdomen and pelvis showed small-bowel obstruction -lactic acid continue to persist along with hematochezia, patient was taken for ex lap. Found to have ischemic small bowel, status post ileal resection with [id number] ileal anastomosis, incident appendectomy on 09/26/2020 -extubated postop, doing well in the ICU. Received adequate IV fluids, urine output has been adequate -pain controlled -surgery following the patient -will discuss with surgery regarding up in chair and increase in activity (2) DKA (diabetic ketoacidoses): Qualifiers: Diabetes mellitus type: type 2 Diabetes mellitus complication detail: without coma Qualified Code(s): E11.10 - Type 2 diabetes mellitus with ketoacidosis without coma Code(s): E11.10 - Type 2 diabetes mellitus with ketoacidosis without coma Status: Acute Assessment and Plan: Patient presented with abdominal pain, nausea vomiting. Was found to be in DKA in the ER, patient was given 3 L IV fluid bolus, started on insulin infusion and transferred to the ICU for further management. Inciting event could be small-bowel obstruction, severe sepsis syndrome -continue sliding scale insulin and Lantus -hemoglobin A1c is 8.4 this admission (3) Small intestine obstruction: Code(s): K56.609 - Unspecified intestinal obstruction, unspecified as to partial versus complete obstruction Status: Acute Assessment and Plan: Small-bowel obstruction with transition point at the terminal ileum. Ascites, mesenteric edema as seen on CT scan of the abdomen and pelvis done in the ER on 09/25/2020 Status post ex lap with surgery as above -d (4) Severe sepsis: Code(s): A41.9 - Sepsis, unspecified organism; R65.20 - Severe sepsis without septic shock Status: Acute Assessment and Plan: RESOLVED -likely related to ischemic bowel, small-bowel obstruction, DKA -patient adequately fluid-resuscitated -blood pressures are stable -continue to monitor urine output, renal function -1.2 on 2 occasions this morning (5) Acute dehydration: Code(s): E86.0 - Dehydration Status: Acute Assessment and Plan: Adequately fluid-resuscitated, will continue to monitor urine output (6) DVT prophylaxis: Code(s): Z29.9 - Encounter for prophylactic measures, unspecified Status: Acute Assessment and Plan: SCDs Additional Plan Discussed with patient updated with his condition and plan of care. I discussed with him regarding his surgery, also discussed with him regarding his resolution of DKA and improved blood sugars and acidosis. Code status: Full code Critical care time spent:33 minutes Due to a high probability of clinically significant, life threatening deterioration, the patient required my highest level of preparedness to intervene emergently and I personally spent this critical care time directly and personally managing the patient. This critical care time included obtaining a history; examining the patient; pulse oximetry; ordering and review of studies; arranging urgent treatment with development of a management plan; evaluation of patient's response to treatment; frequent reassessment; and discussions with other providers. It was exclusive of separately billable procedures and treating other patients and teaching time. Please see Assessment and Plan section and the rest of the note for further information on patient assessment and treatment Subjective Date/time seen: 09/27/20 09:35 Interval history: Reason for consult: DKA, small-bowel obstruction, lactic acidosis 09/26/2020 status post ex lap, ileal resection with [id number] ileal anastomosis, incidental appendectomy 09/27/2020
[2020-09-27 11:15] LABS: Glucose Point of Care 105 (65-105)
--- NOTE | 2020-09-27 11:28 | PM.PNGS ---
Progress Note: A&P Assessment and Plan (1) Small intestine obstruction: Code(s): K56.609 - Unspecified intestinal obstruction, unspecified as to partial versus complete obstruction Status: Acute Assessment and Plan: Doing well on POD#1 NG out today and start clear liquids Worrell out as well Increase activity Await further return of bowel function Subjective Subjective Date/Time Seen: 09/27/20 11:28 Post Op day: 1 Interval history: Patient doing well. Passing a little flatus. Pain well controlled. Hemodynamically stabilized. Exam GI: Inspection: incision (dressing dry) GI Palp: Yes Soft to palpation and No Tenderness to palpation present (GI) Objective Data Vital Signs Vital Signs: Vital Signs - 24 hr 09/26/20 13:01 09/26/20 14:36 09/26/20 16:57 Temperature 36.8 C 37.2 C 36.3 C L Pulse Rate 116 H 114 H 93 Respiratory Rate 18 18 11 L Blood Pressure 133/81 133/85 176/73 H Pulse Oximetry 96 97 100 09/26/20 17:15 09/26/20 17:30 09/26/20 17:56 Temperature 36.7 C Pulse Rate 103 H 99 102 H Respiratory Rate 18 15 14 Blood Pressure 151/82 H 156/76 H 130/70 Pulse Oximetry 98 98 96 09/26/20 18:00 09/26/20 18:11 09/26/20 18:32 Temperature 36.7 C 36.7 C Pulse Rate 103 H 103 H 99 Respiratory Rate 12 13 Blood Pressure 130/70 132/79 Pulse Oximetry 96 95 09/26/20 18:33 09/26/20 19:00 09/26/20 19:30 Temperature 36.8 C 36.9 C 36.9 C Pulse Rate 99 107 H 105 H Respiratory Rate 12 13 12 Blood Pressure 132/79 123/65 123/63 Pulse Oximetry 96 95 95 09/26/20 20:00 09/26/20 20:30 09/26/20 21:00 Temperature 36.9 C 37.1 C 36.9 C Pulse Rate 102 H 100 106 H Respiratory Rate 12 12 12 Blood Pressure 122/75 136/79 107/66 Pulse Oximetry 96 96 96 09/26/20 22:00 09/27/20 00:00 09/27/20 01:00 Temperature 36.9 C 37.3 C 37.3 C Pulse Rate 105 H 100 95 Respiratory Rate 12 12 12 Blood Pressure 119/64 145/75 H 133/75 Pulse Oximetry 95 95 93 09/27/20 02:00 09/27/20 04:00 09/27/20 06:00 Temperature 37.4 C 37.1 C Pulse Rate 88 95 82 Respiratory Rate 12 14 13 Blood Pressure 119/72 149/76 H 150/75 H Pulse Oximetry 94 96 94 09/27/20 08:00 09/27/20 10:00 09/27/20 11:17 Temperature 36.9 C 36.8 C 36.7 C Pulse Rate 74 85 77 Respiratory Rate 16 16 18 Blood Pressure 152/70 H 158/74 H 154/78 H Pulse Oximetry 95 95 97 Intake/Output Intake/Output: Intake & Output 09/24/20 09/25/20 09/26/20 09/27/20 23:59 23:59 23:59 23:59 Intake Total 1050 6375 1700 Output Total 1150 900 Balance 1050 5225 800 Meds/Results Medications: Active Medications Generic Name Dose Route Start Last Admin Trade Name Freq PRN Reason Stop Dose Admin Enoxaparin Sodium 40 mg 09/27/20 09:00 09/27/20 08:24 Enoxaparin 40 Mg/0.4 Ml Syringe SUB-Q 40 mg DAILY KATHERINE Administration Hydralazine HCl 10 mg 09/27/20 07:30 Hydralazine Hcl 20 Mg/Ml Vial IV PUSH Q4H PRN Blood Pressure - High Hydromorphone HCl 0.5 mg 09/26/20 17:56 09/27/20 04:29 Hydromorphone Hcl Inj (*Crx) 1 Mg/Ml Syr IV PUSH 0.5 mg Q2H PRN Administration Pain Rated 4-6 Hydromorphone HCl 1 mg 09/26/20 17:56 09/27/20 08:06 Hydromorphone Hcl Inj (*Crx) 1 Mg/Ml Syr IV PUSH 1 mg Q2H PRN Administration Pain Rated 7-10 Dextrose 1,000 mls @ 100 mls/hr 09/26/20 02:21 Dextrose 5% 1,000 Ml IVPB PRN PRN Hypoglycemia Protocol Piperacillin/Tazobactam/Dextrose 3.375 gm in 50 mls @ 100 mls/hr 09/26/20 06:00 09/27/20 11:07 Zosyn 3.375 Gm/D5w 50ml Pm IVPB Infused Q6H KATHERINE Infusion Vancomycin HCl 1,000 mg in 250 mls @ 250 mls/hr 09/26/20 16:00 09/27/20 05:30 Vancomycin 1,000 Mg/D5w 250 Ml IVPB Infused Q12H KATHERINE Infusion Acetaminophen 1,000 mg in 100 mls @ 400 mls/hr 09/26/20 18:00 09/27/20 11:01 Ofirmev 1,000 Mg Ivpb IVPB 09/27/20 17:01 Infused Q6HR KATHERINE Infusion Lactated Ringer's 1,000 mls @ 75 mls/hr 09/27/20 07:30 09/27/20 08:12 Lr - Lactat
--- NOTE | 2020-09-27 13:05 | PC.NURSE ---
This patient, Jeancarlos Alonzo, was transferred to [facility] on 09/27/20 at 1305. Personal belongings sent with patient. Report given to Kathryn. Appropriate documentation sent with patient.
--- NOTE | 2020-09-27 14:28 | PC.NURSE ---
This patient, Jeancarlos Alonzo, was received from ICU on 09/27/20 at 1305. Patient/family oriented to unit policies and routines
--- NOTE | 2020-09-27 14:28 | PM.IMPN ---
Progress Note: A&P Assessment and Plan (1) DKA (diabetic ketoacidoses): Qualifiers: Diabetes mellitus type: type 2 Diabetes mellitus complication detail: without coma Qualified Code(s): E11.10 - Type 2 diabetes mellitus with ketoacidosis without coma Code(s): E11.10 - Type 2 diabetes mellitus with ketoacidosis without coma Status: Acute Assessment and Plan: The patient's acute DKA is likely secondary to his small-bowel obstruction. Stable to transfer out of ICU. Pt is on fluids and SSI, continue ACCCUCHECKS ON THE FLOOR. Pt has been started on clear liquid diet (2) Small intestine obstruction: Code(s): K56.609 - Unspecified intestinal obstruction, unspecified as to partial versus complete obstruction Status: Acute Assessment and Plan: Pt appears to have had bowel ischemia and went straight to bowel surgery.Sp bowel surgery and appendectomy. POD day 1, Pt started on clear liquids, continue iv fluids, iv abx, iv pain medication and lovenox. Watch wound. (3) Severe sepsis: Code(s): A41.9 - Sepsis, unspecified organism; R65.20 - Severe sepsis without septic shock Status: Acute Assessment and Plan: With leukocytosis, tachypnea, and elevated lactic acid of 8.3. Continue iv vancomycin and iv zosyn (4) Leukocytosis: Qualifiers: Leukocytosis type: unspecified Qualified Code(s): D72.829 - Elevated white blood cell count, unspecified Code(s): D72.829 - Elevated white blood cell count, unspecified Status: Acute Assessment and Plan: Likely secondary to acute dehydration and severe sepsis. Improved from 26 000 to 14 000. (5) Acute dehydration: Code(s): E86.0 - Dehydration Status: Acute Assessment and Plan: Continue IV hydration. (6) Hypertension: Qualifiers: Hypertension type: unspecified Qualified Code(s): I10 - Essential (primary) hypertension Code(s): I10 - Essential (primary) hypertension Status: Acute Assessment and Plan: Continue iv hydralazine Subjective Date/time seen: 09/27/20 14:28- 50-year-old male with known history of diabetes mellitus presented to the hospital with a complaint of mid abdominal pain since yesterday, sp 1. Exploratory laparotomy 2. Ileal resection with [id number] ileal anastomosis 3. Incidental appendectomy Pt stable to transfer out of icu, continue to watch. Pt is doing well seen in room, walking around abdominal pain 6/10. No fever reported, sugars are 150s. PT does not now his home medications, will need to be started on oral DM medications and BP medications on discharge. Review of Systems Review of Systems: All systems reviewed & are unremarkable except as noted in HPI and below Exam Const: General: cooperative and healthy appearing; No in distress Nutritional Appearance: overweight Orientation/consciousness: oriented to person HENMT: Head: normal to inspection Resp: Effort & Inspection: no respiratory distress Auscultation: no rhonchi and no wheezes Cardio: Rate: regular rate Rhythm: regular rhythm GI: Inspection: other (Abdominal wound with dressing ) Neuro: General: oriented to person Objective Data Vital Signs Vital Signs: Vital Signs - 24 hr 09/26/20 14:36 09/26/20 16:57 09/26/20 17:15 Temperature 37.2 C 36.3 C L Pulse Rate 114 H 93 103 H Respiratory Rate 18 11 L 18 Blood Pressure 133/85 176/73 H 151/82 H Pulse Oximetry 97 100 98 09/26/20 17:30 09/26/20 17:56 09/26/20 18:00 Temperature 36.7 C Pulse Rate 99 102 H 103 H Respiratory Rate 15 14 Blood Pressure 156/76 H 130/70 Pulse Oximetry 98 96 09/26/20 18:11 09/26/20 18:32 09/26/20 18:33 Temperature 36.7 C 36.7 C 36.8 C Pulse Rate 103 H 99 99 Respiratory Rate 12 13 12 Blood Pressure 130/70 132/79 132/79 Pulse Oximetry 96 95 96 09/26/20 19:00 09/26/20 19:30 09/26/20 20:00 Temperature 36.9 C 36.9 C 36.9 C Pulse Rate 107 H 10
[2020-09-27 16:34] LABS: Vancomycin Trough 10.3 ug/mL (10.0-20.0)
[2020-09-27 16:38] LABS: Glucose Point of Care 191 (65-105)
[2020-09-27 20:20] LABS: Glucose Point of Care 188 (65-105)
[2020-09-27] MEDS: INSULIN GLARGINE (*BKC) 100 UNITS/ML 30 UNITS SUB-Q (20:45)
[2020-09-28 02:00] VITALS: BP 115/51; PULSE 84; RESP 18; TEMP 36.6; O2SAT 96
[2020-09-28] MEDS: HYDROmorphone HCL INJ (*CRX) 1 MG/ML SYR IV PUSH (04:22)
[2020-09-28 06:00] VITALS: BP 135/70; PULSE 80; RESP 18; TEMP 36.6; O2SAT 96
[2020-09-28 06:51] LABS: Hematocrit 31.6 % (42.0-52.0); Hemoglobin 10.9 g/dL (14.0-18.0); Mean Corpuscular HGB Conc 34.5 g/dl (32-36); Mean Corpuscular Hemoglobin 29.1 pg (26-34); Mean Corpuscular Volume 84.5 fl (80-100); Mean Platelet Volume 10.7 fl (7.4-10.4); Platelet Count Result 121 k/mm3 (150-375); Red Blood Count 3.74 M/mm3 (4.6-6.20); Red Cell Distribution Width 13.2 % (11.5-14.5); White Blood Count 10.2 K/mm3 (4.5-10.0)
[2020-09-28 07:07] LABS: Alanine Aminotransferase 14 U/L (4-50); Albumin Level 2.3 g/dL (3.5-5.1); Alkaline Phosphatase 56 U/L (38-126); Anion Gap 1 mmol/L (8-16); Aspartate Amino Transferase 31 U/L (17-59); Bilirubin,Total 0.3 mg/dL (0.2-1.3); Blood Urea Nitrogen 27 mg/dL (9-20); Calcium 7.3 mg/dL (8.4-10.2); Carbon Dioxide 30 mmol/L (22-30); Chloride 102 mmol/L (98-107); Estimated CRCL calculation 82 ml/min; Estimated Glomerular Filt Rate > 60; Glucose 141 mg/dL (75-110); Magnesium 1.9 mg/dL (1.6-2.3); Phosphorus 2.7 mg/dL (2.5-4.5); Potassium 3.5 mmol/L (3.4-5.0); Sodium 133 mmol/L (137-145)
[2020-09-28] MEDS: ENOXAPARIN 40 MG/0.4 ML SYRINGE SUB-Q (08:34)
[2020-09-28] MEDS: HYDROmorphone HCL INJ (*CRX) 1 MG/ML SYR 0.5 MG IV PUSH (08:39)
[2020-09-28 09:41] LABS: Glucose Point of Care 161 (65-105)
--- NOTE | 2020-09-28 09:53 | PM.PNGS ---
Progress Note: A&P Assessment and Plan (1) Small intestine obstruction: Code(s): K56.609 - Unspecified intestinal obstruction, unspecified as to partial versus complete obstruction Status: Acute Assessment and Plan: Continues to do well on POD#2 Will advance to full liquids. Increase activity and encouraged walking the halls. Await further return of bowel function Additional Plan Discussed plan of care with Dr. Kramer. Subjective Subjective Date/Time Seen: 09/28/20 09:30 Post Op day: 2 (Ex lap with ileal resection and incidental appendectomy) Patient reports: no new complaints, pain is less, tolerating liquids well, voiding w/o difficulty, flatus and no bowel movement Interval history: Patient seen this morning and reports feeling well. Pain is controlled. Still passing flatus but no BM. Up in the chair and has ambulated in the room. Denies nausea/vomiting or bloating. Review of Systems Review of Systems: All systems reviewed & are unremarkable except as noted in HPI and below Exam Const: General: comfortable, no acute distress, alert and awake Orientation/consciousness: patient oriented x3 Resp: Effort & Inspection: normal respiratory effort Auscultation: clear to auscultation bilaterally Cardio: Rate: regular rate Rhythm: regular rhythm GI: Inspection: non-distended and incision (dressing dry and intact) GI Palp: Yes Soft to palpation and No Tenderness to palpation present (GI) Auscultation: normal bowel sounds Skin: General skin exam: normal color Rashes: no rashes Neuro: General: patient oriented x3, moves all extremities and no focal motor deficits Cranial nerves: Yes CN's II-XII intact bilaterally Speech: normal speech Extrem: General: normal to inspection, no clubbing, cyanosis or edema and no calf tenderness Psych: Mental Status: mental status grossly normal Attitude: cooperative Thought process: Normal thought process present Thought content: Yes Normal thought content present Insight: Good insight present (Psych) Judgement: Good judgement present (Psych) Objective Data Vital Signs Vital Signs: Vital Signs - 24 hr 09/27/20 10:00 09/27/20 11:17 09/27/20 16:00 Temperature 98.2 F 98.1 F 98.2 F Pulse Rate 85 77 74 Respiratory Rate 16 18 18 Blood Pressure 158/74 H 154/78 H 146/70 H Pulse Oximetry 95 97 100 09/27/20 22:00 09/28/20 02:00 09/28/20 06:00 Temperature 98.3 F 97.8 F 97.9 F Pulse Rate 73 84 80 Respiratory Rate 18 18 18 Blood Pressure 134/61 115/51 L 135/70 Pulse Oximetry 97 96 96 Intake/Output Intake/Output: Intake & Output 09/25/20 09/26/20 09/27/20 09/28/20 23:59 23:59 23:59 23:59 Intake Total 1050 6375 4370 1860 Output Total 1150 1850 450 Balance 1050 5225 2520 1410 Meds/Results Medications: Active Medications Generic Name Dose Route Start Last Admin Trade Name Freq PRN Reason Stop Dose Admin Enoxaparin Sodium 40 mg 09/27/20 09:00 09/28/20 08:34 Enoxaparin 40 Mg/0.4 Ml Syringe SUB-Q 40 mg DAILY KATHERINE Administration Hydralazine HCl 10 mg 09/27/20 07:30 Hydralazine Hcl 20 Mg/Ml Vial IV PUSH Q4H PRN Blood Pressure - High Hydromorphone HCl 0.5 mg 09/26/20 17:56 09/28/20 08:39 Hydromorphone Hcl Inj (*Crx) 1 Mg/Ml Syr IV PUSH 0.5 mg Q2H PRN Administration Pain Rated 4-6 Hydromorphone HCl 1 mg 09/26/20 17:56 09/28/20 04:22 Hydromorphone Hcl Inj (*Crx) 1 Mg/Ml Syr IV PUSH 1 mg Q2H PRN Administration Pain Rated 7-10 Dextrose 1,000 mls @ 100 mls/hr 09/26/20 02:21 Dextrose 5% 1,000 Ml IVPB PRN PRN Hypoglycemia Protocol Piperacillin/Tazobactam/Dextrose 3.375 gm in 50 mls @ 100 mls/hr 09/26/20 06:00 09/28/20 06:41 Zosyn 3.375 Gm/D5w 50ml Pm IVPB Infused Q6H KATHERINE Infusion Lactated Ringer's 1,000 mls @ 75 mls/hr 09/27/20 07:30 09/28/20 06:41 Lr - Lactated Ringers Iv IV CONT Infused .[id number] KATHERINE Infusion Vancomycin HCl 1,250 mg in 250 mls @ 200
[2020-09-28 10:00] VITALS: BP 164/69; PULSE 72; RESP 16; TEMP 36.8; O2SAT 97
[2020-09-28] MEDS: HYDROcodone/acetaminophen (*CRX) 5-325 MG TABLET 1 TAB PO ×2 (12:42→17:12)
[2020-09-28 14:00] VITALS: BP 171/70; PULSE 88; RESP 16; TEMP 36.8; O2SAT 99
[2020-09-28 14:12] LABS: Glucose Point of Care 198 (65-105)
[2020-09-28 18:05] LABS: Glucose Point of Care 87 (65-105)
[2020-09-28 19:43] VITALS: BP 168/65; PULSE 76; RESP 12; TEMP 36.8; O2SAT 99
--- NOTE | 2020-09-28 19:45 | PM.IMPN ---
Progress Note: A&P Assessment and Plan (1) Small intestine obstruction: Code(s): K56.609 - Unspecified intestinal obstruction, unspecified as to partial versus complete obstruction Status: Acute Assessment and Plan: Continues to do well on POD#2 tolerating full liquids. Increase activity and encouraged walking the halls. Await further return of bowel function Surgical team advancing diet as tolerated monitor labs for adequate electrolytes monitor surgical site strict I and Os (must chart all BMs.) keep adequately hydrated to prevent constipation Additional Plan Discussed plan of care with Dr. Kramer. Subjective Date/time seen: 09/28/20 19:45 Interval history: Jeancarlos is feeling better today.POD#2, SBO treatment. Ambulating to and from his restroom with nursing staff. Abdominal pain and surgical site pain is well controlled with rest and PRN medications. Surgical incision with unruly intact, well approximated, no redness or drainage. Recent DKA hx,, glucose 198 this morning, continue to monitor and treat. Now tolerating full liquid diet. Surgical team advancing diet as tolerated. He is awake, alert, oriented, able to answer questions and moves all extremities. Patient denies any chest pain, shortness of breath, abdominal pain is bearable. Patient is passing gas. Hemodynamically stable, adequate O2 sats on room air. Denies any nausea vomiting. NG tube was removed prior to my examination. 09/26/2020 status post ex lap, ileal resection with [id number] ileal anastomosis, incidental appendectomy Review of Systems Review of Systems: All systems reviewed & are unremarkable except as noted in HPI and below Constitutional: Constitutional: Reports as per HPI, Denies body ache(s), Denies chills, Denies excessive sweating, Denies fatigue, Denies fever(s), Denies headache(s), Reports increased appetite, Denies lethargy, Denies malaise, Denies weakness and Denies weight loss Eyes: Eyes: Denies blurry vision, Denies change in vision and Denies loss of vision ENT: Denies dizziness, Denies ear discharge, Denies headache(s), Denies lip swelling, Denies epistaxis, Denies nasal congestion, Denies neck pain, Denies throat swelling and Denies tongue swelling Cardiovascular: Cardiovascular: Denies chest pain, Denies chest pain at rest, Denies chest pain with activity, Denies diaphoresis, Denies rapid heart rate, Denies edema, Denies irregular heart rhythm, Denies lightheadedness, Denies palpitations, Denies dyspnea and Denies dyspnea on exertion Respiratory: Respiratory: Denies chest congestion, Denies cough, Denies hemoptysis, Denies dyspnea and Denies dyspnea on exertion Gastrointestinal: Gastrointestinal: Reports as per HPI, Denies melena, Denies hematochezia, Denies diarrhea, Denies nausea, Denies vomiting, Denies hematemesis and Reports other (surgical site) Musculoskeletal: Musculoskeletal: Denies abnormal gait, Denies deformity, Denies joint swelling, Denies limited range of motion, Denies neck pain and Denies numbness Integumentary/Breasts: Skin/Breast: Reports as per HPI Neurologic: Reports as per HPI, Reports Normal hearing present, Denies Abnormal speech present, Denies abnormal gait, Denies confusion, Denies dizziness, Denies headache(s), Denies focal weakness, Denies loss of vision, Denies numbness, Denies Other visual disturbances, Denies Sensory deficit (Neuro) and Denies weakness Psychiatric: Psychiatric: Denies confusion, Denies depression, Denies auditory hallucinations, Denies homicidal ideation and Denies suicidal ideation Endocrine: Endocrine: Denies cold intolerance, Denies excessive sweating, Denies fatigue, Denies heat intolerance and Denies palpitations Hematologic/Lymphatic: Hematologic/Lymphatic: Denies easy bleeding and Denies easy bruising Allergic/Immunologic: Allergic/Immunologic: Denies lip swelling, Denies throat swelling and Denies tongue swelling Exam Const: General: cooperative, healthy
[2020-09-28 20:08] LABS: Glucose Point of Care 151 (65-105)
[2020-09-28] MEDS: INSULIN GLARGINE (*BKC) 100 UNITS/ML 30 UNITS SUB-Q (20:19)
[2020-09-29] MEDS: HYDROcodone/acetaminophen (*CRX) 5-325 MG TABLET 1 TAB PO (03:47)
[2020-09-29 04:20] LABS: Hematocrit 36.3 % (42.0-52.0); Hemoglobin 12.4 g/dL (14.0-18.0); Mean Corpuscular HGB Conc 34.2 g/dl (32-36); Mean Corpuscular Hemoglobin 29.2 pg (26-34); Mean Corpuscular Volume 85.6 fl (80-100); Platelet Count Result 138 k/mm3 (150-375); Red Blood Count 4.24 M/mm3 (4.6-6.20); Red Cell Distribution Width 13.2 % (11.5-14.5)
[2020-09-29 05:10] LABS: Alanine Aminotransferase 18 U/L (4-50); Albumin Level 2.9 g/dL (3.5-5.1); Alkaline Phosphatase 71 U/L (38-126); Anion Gap 2 mmol/L (8-16); Aspartate Amino Transferase 32 U/L (17-59); Bilirubin,Total 0.5 mg/dL (0.2-1.3); Blood Urea Nitrogen 12 mg/dL (9-20); Carbon Dioxide 33 mmol/L (22-30); Chloride 101 mmol/L (98-107); Estimated CRCL calculation 93 ml/min; Estimated Glomerular Filt Rate > 60; Glucose 137 mg/dL (75-110); Magnesium 1.9 mg/dL (1.6-2.3); Phosphorus 3.4 mg/dL (2.5-4.5); Potassium 3.5 mmol/L (3.4-5.0); Sodium 136 mmol/L (137-145)
--- NOTE | 2020-09-29 07:35 | PM.PNGS ---
Progress Note: A&P Assessment and Plan (1) Small intestine obstruction: Code(s): K56.609 - Unspecified intestinal obstruction, unspecified as to partial versus complete obstruction Status: Acute Assessment and Plan: Healing well on POD#3 Advance to regular diabetic diet OK to discharge around lunchtime today if tolerating solid diet Follow up in office in 1-2 weeks for staple removal Subjective Subjective Date/Time Seen: 09/29/20 07:35 Post Op day: 3 Interval history: Doing well. Tolerating full liquids. Pain controlled. Bowels moving. Exam GI: Inspection: normal to inspection, non-distended and incision (intact with unruly, dry, no redness) GI Palp: Yes Soft to palpation and Yes Tenderness to palpation present (GI) (appropriate incisional) Auscultation: normal bowel sounds Objective Data Vital Signs Vital Signs: Vital Signs - 24 hr 09/28/20 10:00 09/28/20 14:00 09/28/20 19:43 Temperature 36.8 C 36.8 C 36.8 C Pulse Rate 72 88 76 Respiratory Rate 16 16 12 Blood Pressure 164/69 H 171/70 H 168/65 H Pulse Oximetry 97 99 99 Intake/Output Intake/Output: Intake & Output 09/26/20 09/27/20 09/28/20 09/29/20 23:59 23:59 23:59 23:59 Intake Total 6375 4370 2900 450 Output Total 1150 1850 1175 1200 Balance 5225 2520 1725 -750 Meds/Results Medications: Active Medications Generic Name Dose Route Start Last Admin Trade Name Freq PRN Reason Stop Dose Admin Hydrocodone Bitart/Acetaminophen 1 tab 09/28/20 12:13 09/29/20 03:47 Hydrocodone/Acetaminophen (*Crx) 5-325 Mg Tablet PO 1 tab Q4H PRN Administration Pain Rated 4-6 Hydrocodone Bitart/Acetaminophen 1 tab 09/28/20 12:13 Hydrocodone/Acetaminophen (*Crx) 10-325 Mg Tablet PO Q4H PRN Pain Rated 7-10 Enoxaparin Sodium 40 mg 09/27/20 09:00 09/28/20 08:34 Enoxaparin 40 Mg/0.4 Ml Syringe SUB-Q 40 mg DAILY KATHERINE Administration Hydralazine HCl 10 mg 09/27/20 07:30 Hydralazine Hcl 20 Mg/Ml Vial IV PUSH Q4H PRN Blood Pressure - High Hydromorphone HCl 0.5 mg 09/26/20 17:56 09/28/20 08:39 Hydromorphone Hcl Inj (*Crx) 1 Mg/Ml Syr IV PUSH 0.5 mg Q2H PRN Administration Pain Rated 4-6 Hydromorphone HCl 1 mg 09/26/20 17:56 09/28/20 04:22 Hydromorphone Hcl Inj (*Crx) 1 Mg/Ml Syr IV PUSH 1 mg Q2H PRN Administration Pain Rated 7-10 Dextrose 1,000 mls @ 100 mls/hr 09/26/20 02:21 Dextrose 5% 1,000 Ml IVPB PRN PRN Hypoglycemia Protocol Piperacillin/Tazobactam/Dextrose 3.375 gm in 50 mls @ 100 mls/hr 09/26/20 06:00 09/29/20 05:38 Zosyn 3.375 Gm/D5w 50ml Pm IVPB Infused Q6H [facility] Infusion Vancomycin HCl 1,000 mg in 250 mls @ 250 mls/hr 09/29/20 14:00 Vancomycin 1,000 Mg/D5w 250 Ml IVPB Q8H [facility] Ibuprofen 600 mg 09/28/20 12:13 Ibuprofen 600 Mg Tablet PO Q6H PRN Pain Rated 1-3 Insulin Aspart 4 - 8 units 09/27/20 17:00 09/28/20 17:08 Insulin Aspart (*Bkc) 100 Units/Ml SUB-Q Not Given TIDWM [facility] Protocol Insulin Glargine 30 units 09/26/20 21:00 09/28/20 20:19 Insulin Glargine (*Bkc) 100 Units/Ml SUB-Q 30 units HS [facility] Administration Ondansetron HCl 4 mg 09/26/20 14:37 Ondansetron Inj 4 Mg/2 Ml Vial IV PUSH ONCE PRN Nausea Radiology Results: ITS Impressions Abdomen/Pelvis CT 09/25/20 22:55 IMPRESSION: 1. Small bowel obstruction, transition point at the terminal ileum. Ascites, mesenteric edema. 2. Moderate-sized paraesophageal hiatal hernia. 3. Moderate sigmoid diverticulosis. Abdomen X-Ray 09/26/20 06:28 IMPRESSION: 1: NG tube tip in the stomach. Chest X-Ray 09/27/20 06:28 Impression: 1: Mixed bilateral perihilar interstitial and airspace disease, pneumonia versus edema. Labs Labs: Laboratory Results - last 24 hr 09/28/20 09/28/20 09/28/20 08:30 11:29 17:05 WBC RBC Hgb Hct MCV MCH
[2020-09-29 07:43] LABS: Glucose Point of Care 79 (65-105)
[2020-09-29 08:00] VITALS: BP 149/69; PULSE 82; RESP 18; TEMP 36.9; O2SAT 98
[2020-09-29] MEDS: ENOXAPARIN 40 MG/0.4 ML SYRINGE SUB-Q (08:48)
[2020-09-29 11:59] LABS: Glucose Point of Care 113 (65-105)
--- NOTE | 2020-09-29 12:24 | PM.IMPN ---
Progress Note: A&P Assessment and Plan (1) DKA (diabetic ketoacidoses): Qualifiers: Diabetes mellitus complication detail: without coma Diabetes mellitus type: type 2 Qualified Code(s): E11.10 - Type 2 diabetes mellitus with ketoacidosis without coma Code(s): E11.10 - Type 2 diabetes mellitus with ketoacidosis without coma Status: Acute Assessment and Plan: The patient's acute DKA is likely secondary to his small-bowel obstruction. Continue diet continue lantus, DM educator, DM dietican and manager star for Dm pricing. CHange to Basaglar insulin (2) Small intestine obstruction: Code(s): K56.609 - Unspecified intestinal obstruction, unspecified as to partial versus complete obstruction Status: Acute Assessment and Plan: Pt appears to have had bowel ischemia and went straight to bowel surgery.Sp bowel surgery and appendectomy. POD day 3 (3) Severe sepsis: Code(s): A41.9 - Sepsis, unspecified organism; R65.20 - Severe sepsis without septic shock Status: Resolved Assessment and Plan: Pt has been on IV zosyn and vancomycin (4) Leukocytosis: Qualifiers: Leukocytosis type: unspecified Qualified Code(s): D72.829 - Elevated white blood cell count, unspecified Code(s): D72.829 - Elevated white blood cell count, unspecified Status: Acute Assessment and Plan: Likely secondary to acute dehydration and severe sepsis. Improved from 26 000 to 8 000. (5) Acute dehydration: Code(s): E86.0 - Dehydration Status: Resolved Assessment and Plan: (6) Hypertension: Qualifiers: Hypertension type: unspecified Qualified Code(s): I10 - Essential (primary) hypertension Code(s): I10 - Essential (primary) hypertension Status: Chronic Assessment and Plan: Transition to norvasc 5 mg po qdaily and lisonpril 5 mg po qdaily Subjective Date/time seen: 09/29/20 12:24 Interval history: 50-year-old male with known history of diabetes mellitus presented to the hospital with a complaint of mid abdominal pain since yesterday, sp 1. Exploratory laparotomy 2. Ileal resection with [id number] ileal anastomosis 3. Incidental appendectomy Pt is doing better tolerating a diet, ambulating well, comfortable Pt is not on any home medications start oral BP medications continue lantus and consult case finishing machine adjuster for prices of medications Review of Systems Review of Systems: All systems reviewed & are unremarkable except as noted in HPI and below Exam Const: General: cooperative and healthy appearing; No in distress Nutritional Appearance: overweight Orientation/consciousness: oriented to person HENMT: Head: normal to inspection Resp: Effort & Inspection: no respiratory distress Auscultation: no rhonchi and no wheezes Cardio: Rate: regular rate Rhythm: regular rhythm GI: Inspection: other (Abdominal wound with dressing ) Neuro: General: oriented to person Objective Data Vital Signs Vital Signs: Vital Signs - 24 hr 09/28/20 14:00 09/28/20 19:43 09/29/20 08:00 Temperature 36.8 C 36.8 C 36.9 C Pulse Rate 88 76 82 Respiratory Rate 16 12 18 Blood Pressure 171/70 H 168/65 H 149/69 H Pulse Oximetry 99 99 98 Intake/Output Intake/Output: Intake & Output 09/26/20 09/27/20 09/28/20 09/29/20 23:59 23:59 23:59 23:59 Intake Total 6375 4370 2900 570 Output Total 1150 1850 1175 1200 Balance 5225 3853 9933 -526 Meds/Results Medications: Active Medications Generic Name Dose Route Start Last Admin Trade Name Freq PRN Reason Stop Dose Admin Hydrocodone Bitart/Acetaminophen 1 tab 09/28/20 12:13 09/29/20 03:47 Hydrocodone/Acetaminophen (*Crx) 5-325 Mg Tablet PO 1 tab Q4H PRN Administration Pain Rated 4-6 Hydrocodone Bitart/Acetaminophen 1 tab 09/28/20 12:13 Hydrocodone/Acetaminophen (*Crx) 10-325 Mg Tablet PO Q4H PRN Pain Rated 7-10 Enoxaparin Sodiu
[2020-09-29 14:00] VITALS: BP 150/70; PULSE 78; RESP 16; TEMP 37.2; O2SAT 98
--- NOTE | 2020-09-29 14:06 | PCDIET ---
Physician consult for DM education. See nutritional teaching intervention. thank you for the consult.
[2020-09-29 15:15] VITALS: BMI 24.3
[2020-09-29 16:45] LABS: Glucose Point of Care 414 (65-105)
[2020-09-29] MEDS: amLODIPine BESYLATE 5 MG TABLET PO (16:54)
[2020-09-29 16:55] LABS: Glucose Point of Care 286 (65-105)
[2020-09-29] MEDS: INSULIN ASPART (*BKC) 100 UNITS/ML SUB-Q (16:55)
[2020-09-29] MEDS: HYDROcodone/acetaminophen (*CRX) 10-325 MG TABLET 1 TAB PO (20:40)
[2020-09-29] MEDS: INSULIN GLARGINE (*BKC) 100 UNITS/ML 30 UNITS SUB-Q (20:41)
[2020-09-29 21:24] LABS: Glucose Point of Care 99 (65-105)
[2020-09-29 22:00] VITALS: BP 147/80; PULSE 84; RESP 20; TEMP 36.4; O2SAT 98
[2020-09-30 06:00] VITALS: BP 126/62; PULSE 63; RESP 21; TEMP 36.4; O2SAT 100
[2020-09-30 06:10] LABS: Hematocrit 34.4 % (42.0-52.0); Mean Corpuscular HGB Conc 34.9 g/dl (32-36); Mean Corpuscular Hemoglobin 29.3 pg (26-34); Mean Corpuscular Volume 84.1 fl (80-100); Mean Platelet Volume 10.1 fl (7.4-10.4); Platelet Count Result 183 k/mm3 (150-375); Red Blood Count 4.09 M/mm3 (4.6-6.20); Red Cell Distribution Width 12.8 % (11.5-14.5); White Blood Count 6.4 K/mm3 (4.5-10.0)
[2020-09-30 06:21] LABS: Alanine Aminotransferase 22 U/L (4-50); Albumin Level 2.8 g/dL (3.5-5.1); Alkaline Phosphatase 74 U/L (38-126); Anion Gap 4 mmol/L (8-16); Aspartate Amino Transferase 41 U/L (17-59); Bilirubin,Total 0.3 mg/dL (0.2-1.3); Blood Urea Nitrogen 13 mg/dL (9-20); Calcium 8.2 mg/dL (8.4-10.2); Carbon Dioxide 29 mmol/L (22-30); Chloride 101 mmol/L (98-107); Estimated CRCL calculation 106 ml/min; Estimated Glomerular Filt Rate > 60; Glucose 132 mg/dL (75-110); Magnesium 1.8 mg/dL (1.6-2.3); Phosphorus 3.6 mg/dL (2.5-4.5); Potassium 3.7 mmol/L (3.4-5.0); Sodium 134 mmol/L (137-145)
[2020-09-30 07:36] LABS: Glucose Point of Care 85 (65-105)
[2020-09-30 08:00] VITALS: PULSE 63; RESP 21; O2SAT 100
[2020-09-30] MEDS: amLODIPine BESYLATE 5 MG TABLET PO (08:56)
[2020-09-30] MEDS: ENOXAPARIN 40 MG/0.4 ML SYRINGE SUB-Q (08:56)
[2020-09-30] MEDS: HYDROcodone/acetaminophen (*CRX) 5-325 MG TABLET 1 TAB PO (09:04)
--- NOTE | 2020-09-30 11:17 | PM.DS ---
DS: Admitting Diagnosis Admitting Diagnosis Admitting Diagnosis: bowel obstruction DS: Discharge Diagnosis Discharge Diagnosis (1) Ischemic bowel disease: Code(s): K55.9 - Vascular disorder of intestine, unspecified Status: Acute (2) Hypertension: Qualifiers: Hypertension type: unspecified Qualified Code(s): I10 - Essential (primary) hypertension Code(s): I10 - Essential (primary) hypertension Status: Chronic (3) Severe sepsis: Code(s): A41.9 - Sepsis, unspecified organism; R65.20 - Severe sepsis without septic shock Status: Resolved (4) DKA (diabetic ketoacidoses): Qualifiers: Diabetes mellitus complication detail: without coma Diabetes mellitus type: type 2 Qualified Code(s): E11.10 - Type 2 diabetes mellitus with ketoacidosis without coma Code(s): E11.10 - Type 2 diabetes mellitus with ketoacidosis without coma Status: Acute (5) Acute dehydration: Code(s): E86.0 - Dehydration Status: Resolved (6) Small intestine obstruction: Code(s): K56.609 - Unspecified intestinal obstruction, unspecified as to partial versus complete obstruction Status: Acute DS: Summary Hospital Course Reason for hospitalization: abdominal pain Hospital Course: Presented with abdominal pain. Imaging was c/w ischemic bowel. Treated with broad spectrum antibx, bowel rest and ivf. campaign consultant performed expl lap and bowel resection as outlined in his procedure note on 09/26/2020: Exploratory laparotomy was performed. Upon entering the abdomen there was approximately 1 L of blood-tinged ascites in the abdominal cavity. I immediately identified a segment of small bowel that appeared ischemic secondary to an internal hernia caused by a loop of omentum adhesed to the right lower abdomen. Once the adhesion was freed up this released the bowel obstruction and I was able to assess the bowel for viability. The bowel proximal and distal to this appeared healthy and viable. He had approximately 20-30 cm of distal ileum left before the ileocecal valve and then most of his jejunum was still remaining with a total bowel length of 5-6 feet remaining. The involved segment of ischemia was approximately 3 ft long. The remaining colon and other organs appeared healthy and viable. Ileal resection was performed with a [id number] stapled anastomosis. The anastomosis appeared healthy and viable. I then chose to remove his appendix as it was right near where the small-bowel resection was being performed. There did not appear to be any pathologic abnormality to the appendix at this time, but due to likelihood of significant abdominal adhesions in the future, appendix was removed to avoid future risks of appendicitis. Patient was then returned to the ICU in critical condition but remained extubated and with normal blood pressure. His post op course was uneventful and he was discharged in stable condition on POD 4. Status at Discharge Functional status at discharge: independent ambulation Overall status at discharge: patient is progressing back to baseline Time Spent with Patient Time attestation: Total time spent providing and/or coordinating discharge services: 35 min Time spent: Greater than 30 minutes Exam Const: General: cooperative, healthy appearing, comfortable, no acute distress, well developed, alert, awake, ill appearing, tired appearing and uncomfortable; No acute distress, in distress or confusion Nutritional Appearance: well nourished and overweight Orientation/consciousness: oriented to person, oriented to place, oriented to time, patient oriented x3 and No confusion Limitations: no limitations HENMT: Head: normal to inspection, normocephalic and atraumatic Ears: hearing grossly normal bilaterally, TM normal on the right and TM normal on the left General nose exam: Normal external nose present, Normal nares present, No nasal discharge present and Other mike
[2020-09-30 11:54] LABS: Glucose Point of Care 146 (65-105)
== END 2020-09-30 13:00 | disposition home or self-care (01) | DRG 710 ==
LOC: ANHED 09-26 00:59 → ANHICU 09-26 09:18 → ANH3MED 09-28 09:46 → ANHICU 10-04 14:06
PROVIDERS: Internal Medicine; Surgery; Admitting Provider Family Medicine; Emergency Provider Emergency Medicine; Visit Provider Nurse Practitioner
PROC: 0DBB0ZZ Excision of Ileum, Open Approach (ICD-10-PCS; CPT 49000; principal; 2020-09-26 14:00)
DX: A41.9 Sepsis, unspecified organism (principal); R65.20 Severe sepsis without septic shock; K56.50 Intestinal adhesions [bands], unspecified as to partial versus complete obstruction; K45.0 Other specified abdominal hernia with obstruction, without gangrene; K55.8 Other vascular disorders of intestine; K92.1 Melena; E11.10 Type 2 diabetes mellitus with ketoacidosis without coma; E86.0 Dehydration; I10 Essential (primary) hypertension
CPT/HCPCS: 36415; 36600; 71045; 74177; 80048; 80053; 80202; 81001; 82010; 82375; 82805; 82948; 83036; 83050; 83605; 83735; 84100; 85025; 85027; 85610; 85730; 87040; 88302; 88304; 88307; 96361; 96365; 96375; 99285; A9270; J0131; J1170; J1650; J1815; J2250; J2270; J2405; J2543; J2550; J3010; J3370; J3480; J7030; J7040; J7120; Q9967